=== PATIENT | male | born 1955 | race Caucasian/White ===

== ENCOUNTER 2020-07-02 09:11 | Emergency (ER) | payer MEDICARE, OTHER ==
[~2020-07-02] VITALS: Ht 175.3 cm; Wt 65.3 kg
[2020-07-02 11:23] VITALS: BP 129/85
== END 2020-07-02 11:26 ==
LOC: ER 09:41
DX: T83.020A Displacement of cystostomy catheter, initial encounter (principal); G82.50 Quadriplegia, unspecified; Y84.6 Urinary catheterization as the cause of abnormal reaction of the patient, or of later complication, without mention of misadventure at the time of the procedure; Z86.73 Personal history of transient ischemic attack (TIA), and cerebral infarction without residual deficits
CPT/HCPCS: 51705; 94002; 99283